=== PATIENT | female | born 1935 | race Caucasian/White ===

== ENCOUNTER 2016-07-14 12:41 | Emergency (ER) | payer MEDICARE ==
[~2016-07-14] VITALS: Ht 157.5 cm; Wt 44.2 kg
[~2016-07-14 12:41] MED LIST: ACTO35TA PO; ALBU17I INH; AMLO5TAB96 PO; ASPI325T PO; CALC600T34 PO; LIPI40TA PO; TAB-TAB PO
[2016-07-14 12:46] VITALS: BP 130/76; PULSE 70; RESP 18; TEMP 98; O2SAT 96
[2016-07-14] MEDS ORDERED: CLOP75TA PO (13:04)
[2016-07-14] MEDS ORDERED: CLOB-40 TOPICAL (13:04)
[2016-07-14] MEDS ORDERED: HYDR-3516 PO (13:04)
[2016-07-14] MEDS ORDERED: ATOR40TA16 PO (13:04)
[2016-07-14] MEDS ORDERED: METO25TA6 PO (13:04)
[2016-07-14] MEDS ORDERED: ALEN1TAB48 PO (13:04)
[2016-07-14] MEDS ORDERED: CELE1CAP8 PO (13:04)
[2016-07-14] MEDS ORDERED: FLEC1.3D4 TOPICAL (13:04)
[2016-07-14] MEDS ORDERED: PANT40TA3 PO (13:04)
[2016-07-14] MEDS ORDERED: HYDR25TA5 PO (13:04)
[2016-07-14] MEDS ORDERED: ASPI81CH7 CHEW (13:04)
[2016-07-14] MEDS ORDERED: FLUO20CA4 PO (13:04)
[2016-07-14] MEDS ORDERED: KETOC2%T TOPICAL (13:04)
[2016-07-14 13:12] VITALS: O2SAT 96
[2016-07-14] MEDS ORDERED: SODIUM CHLORIDE 0.9% FLUSH 10 ML FLUSH IVF PRN (13:15)
[2016-07-14 13:27] LABS: AUTOMATED NEUTROPHIL # 4.2 TH/MM3 (1.8-7.7); BASOPHIL % 0.3 % (0.0-2.0); EOSINOPHIL # 0.1 TH/MM3 (0-0.4); EOSINOPHIL % 0.8 % (0.0-4.0); HEMATOCRIT 34.7 % (35.0-46.0); HEMO FLAGS DIFF FINAL; LYMPH % 25.4 % (9.0-44.0); LYMPHOCYTE # 1.7 TH/MM3 (1.0-4.8); MEAN CELL VOLUME 78.4 FL (80.0-100.0); MEAN CORPUSCULAR HEMOGLOBIN 25.6 PG (27.0-34.0); MEAN CORPUSCULAR HGB CONC 32.6 % (32.0-36.0); MONO % 8.8 % (0.0-8.0); NEUT % 64.7 % (16.0-70.0); PLATELET COUNT 374 TH/MM3 (150-450); RED BLOOD COUNT 4.43 MIL/MM3 (4.00-5.30); RED CELL DISTRIBUTION WIDTH 13.5 % (11.6-17.2); WHITE BLOOD COUNT 6.7 TH/MM3 (4.0-11.0)
--- NOTE | 2016-07-14 13:32 | RADHPO ---
EXAM DATE/TIME: 07/14/2016 13:23 [place] COMPARISON: No previous studies available for comparison. INDICATIONS : Short of breath. MEDICAL HISTORY : Chronic obstructive pulmonary disease. SURGICAL HISTORY : CABG. ENCOUNTER: Initial ACUITY: 1 day PAIN SCORE: 0/10 LOCATION: Bilateral chest FINDINGS: The cardiac silhouette is normal in transverse diameter. The lungs are free of acute parenchymal opac ity. No effusions are identified. Median sternotomy wires are present. There is mild scoliotic deform ity convex to the left. CONCLUSION: 1. No acute cardiopulmonary disease. Adilson Garcia MD on July 14, 2016 at 13:31 Board Certified Radiologist. This report was verified electronically.
[2016-07-14 13:38] LABS: POTASSIUM 3.2 MEQ/L (3.5-5.1)
[2016-07-14 13:42] LABS: BICARBONATE 30.2 MEQ/L (21.0-32.0)
--- NOTE | 2016-07-14 14:11 | PD ---
HPI Chief Complaint: GI Complaint Time Seen by Provider: 13:01 Travel History International Travel<30 days: No Contact w/Intl Traveler<30days: No Traveled to known affect area: No History of Present Illness HPI Patient is a 80-year-old female here with complaint of flulike symptoms. Patient states that she is been ill for the better part of the last week. She notes generalized malaise, body aches. Subjective fevers and chills. Slight sore throats but no glandular swelling. Cough which is primarily nonproductive and dry. She notes nausea with 2 episodes of vomiting over the last week. No abdominal pain or diarrhea. She has not had any recent travel or sick contacts. PFSH Past Medical History Hx Anticoagulant Therapy: Yes (plavix, asa 81mg) Cardiovascular Problems: Yes (htn on meds, bypass 2 vessels) High Cholesterol: Yes Coronary Artery Disease: Yes Diminished Hearing: No GERD: Yes Hypertension: Yes Integumentary: Yes (SKIN CA REMOVED FROM FACE ,LEFT ARM AND BACK.) Immunizations Current: Yes (FLU SHOT-.) Influenza Vaccination: Yes ?: Not Past Surgical History Abdominal Surgery: Yes (COLECTOMY) Coronary Artery Bypass Graft: Yes (2015) Gynecologic Surgery: Yes (BILAT OOPHORECTOMY) Other Surgery: Yes (PT STATES SHE HAS HAD 4 BREAST BIOPSIES, ALL BENIGN.) Social History Alcohol Use: Yes (ZERO TO 1 /MONTH) Tobacco Use: Yes (1/2 PPD X 49 YRS.) Substance Use: No Allergies-Medications (Allergen,Severity, Reaction): Coded Allergies: No Known Allergies (Verified , 07/14/16) Reported Meds & Prescriptions Reported Meds & Active Scripts Active Reported Pantoprazole (Pantoprazole Sodium) 40 Mg Tab 40 Mg PO DAILY Metoprolol Succinate ER 24 HR (Metoprolol Succinate) 25 Mg Tab 12.5 Mg PO DAILY Nizoral Topical Shampoo (Ketoconazole) 2% Sham 1 Applic TOPICAL 3XWEEK Apply to scalp Hydrocodone-Acetaminophen 5-325 mg Tab 1 Tab PO BID PRN Hydrochlorothiazide 25 Mg Tab 25 Mg PO DAILY Fluoxetine (Fluoxetine HCl) 20 Mg Cap 20 Mg PO DAILY Flector Patch (Diclofenac Patch) 1.3 % Patch 1 Patch TOPICAL BID Clopidogrel (Clopidogrel Bisulfate) 75 Mg Tab 75 Mg PO DAILY Temovate Topical (Clobetasol Propionate) 0.05% Cream 1 Applic TOPICAL BID Celecoxib 200 Mg Cap 200 Mg PO BID Atorvastatin (Atorvastatin Calcium) 40 Mg Tab 40 Mg PO HS Aspirin Children's (Aspirin) 81 Mg Chew 81 Mg CHEW DAILY Alendronate (Alendronate Sodium) 70 Mg Tab 70 Mg PO Q7D Review of Systems Except as stated in HPI: all other systems reviewed are Neg Physical Exam Narrative GENERAL: Elderly female in no acute distress SKIN: Focused skin assessment warm/dry. HEAD: Normocephalic. EYES: No scleral icterus. No injection or drainage. ENT: No nasal bleeding or discharge. Mucous membranes pink and moist. TMs clear bilaterally. Posterior pharynx with mild erythema but no exudate or palatal petechiae NECK: Supple without nuchal rigidity CARDIOVASCULAR: Regular rate and rhythm. No murmur appreciated. RESPIRATORY: No accessory muscle use. Clear to auscultation. Breath sounds equal bilaterally. GASTROINTESTINAL: Abdomen soft, non-tender, nondistended. MUSCULOSKELETAL: No obvious deformities.No edema. NEUROLOGICAL: Awake and alert. Normal speech. PSYCHIATRIC: Appropriate mood and affect; insight and judgment normal. Data Data Last Documented VS Vital Signs Date Time Temp Pulse Resp B/P Pulse Ox O2 Delivery O2 Flow Rate FiO2 07/14/16 14:14 60 124/64 96 07/14/16 12:46 98.0 18 Orders Complete Blood Count With Diff (07/14/16 13:04) Basic Metabolic Panel (Bmp) (07/14/16 13:04) Iv Access Insert/Monitor (07/14/16 13:04) Ecg Monitoring (07/14/16 13:04) Oximetry (07/14/16 13:04) Chest, Single Ap (07/14/16 13:04) Sodium Chloride 0.9% Flush (Ns Flush) (07/14/16 13:15) Potassium Chloride (Kcl) (07/14/16 14:15) Labs Laboratory Tests Test 07/14/16 13:20 White Blood Count 6.7 TH/MM3 Red Blood Count 4.43 MIL/MM3 Hemoglobin 11.3 GM/DL Hematocrit 34.7 % Mean Corpuscular Volume 78.4 FL Mean Corpuscular Hemoglobin 25.6 PG Mean Corpuscular Hemoglobin 32.6 % Concent Red Cell Distribution Width 13.5 % Platelet Count 374 TH/MM3 Mean Platelet Volume 8.3 FL Neutrophils (%) (Auto) 64.7 % Lymphocytes (%) (Auto) 25.4 % Monocytes (%) (Auto) 8.8 % Eosinophils (%) (Auto) 0.8 % Basophils (%) (Auto) 0.3 % Neutrophils # (Auto) 4.2 TH/MM3 Lymphocytes # (Auto) 1.7 TH/MM3 Monocytes # (Auto) 0.6 TH/MM3 Eosinophils # (Auto) 0.1 TH/MM3 Basophils # (Auto) 0.0 TH/MM3 CBC Comment DIFF FINAL Differential Comment Sodium Level 143 MEQ/L Potassium Level 3.2 MEQ/L Chloride Level 101 MEQ/L Carbon Dioxide Level 30.2 MEQ/L Anion Gap 12 MEQ/L Blood Urea Nitrogen 27 MG/DL Creatinine 1.40 MG/DL Estimat Glomerular Filtration 36 ML/MIN Rate Random Glucose 109 MG/DL Calcium Level 8.9 MG/DL MDM Medical Decision Making Medical Screen Exam Complete: Yes Emergency Medical Condition: Yes Medical Record Reviewed: Yes Differential Diagnosis 80-year-old female here with nearly one week of flulike symptoms, body aches, subjective fevers and chills, cough and nausea with 2 episodes of emesis. Differential includes viral syndrome, dehydration, electrolyte abnormality, pharyngitis, pneumonia. Abdominal examination is benign making peritoneal pathology less likely. Narrative Course Patient placed on monitor, IV established and blood obtained. CBC, BMP obtained and notable for potassium 3.2. Replaced with 40 mEq orally. Portable chest x-ray negative. Diagnosis Primary Impression: Viral syndrome Additional Impression: Hypokalemia Referrals: Primary Care Physician as needed Additional Instructions: Drink plenty of fluids and get plenty of rest. Tylenol, ibuprofen as needed for body aches and fever. Follow-up with primary care provider symptoms persist and return to the ER for the warning signs discussed. Med/Other Pt SpecificInfo: Prescription(s) given Scripts Benzonatate (Tessalon Perles)100 Mg [id number] Mg PO TID PRN (COUGH) #21 CAP Ref 0 Prov:Shima Coronel MD 07/14/16 Ondansetron Odt (Zofran Odt)8 Mg Tab8 Mg SL Q8H PRN (NAUSEA OR VOMITING) #10 TAB Ref 0 Prov:Shima Coronel MD 3/31/17 Disposition: 01 DISCHARGE HOME Condition: Stable Evens,Shima N. MD Jul 14, 2016 14:11
[2016-07-14 14:14] VITALS: BP 124/64; PULSE 60; O2SAT 96
[2016-07-14] MEDS ORDERED: POTASSIUM CHLORIDE 20 MEQ CONTROLLED RELEASE TAB PO ONE (14:15)
[2016-07-14] MEDS ORDERED: ZOFR8TAB4 SL (14:31)
[2016-07-14] MEDS ORDERED: BENZ100 PO (14:31)
== END 2016-07-14 14:42 | disposition home or self-care (01) ==
LOC: PHED 12:41
DX: B34.9 Viral infection, unspecified (principal); E87.6 Hypokalemia; I10 Essential (primary) hypertension; I25.10 Atherosclerotic heart disease of native coronary artery without angina pectoris; E78.00 Pure hypercholesterolemia, unspecified; Z79.01 Long term (current) use of anticoagulants
CPT/HCPCS: 71010; 80048; 85025; 99284